=== PATIENT | female | born 1965 | race Caucasian/White ===

== ENCOUNTER 2017-05-12 20:35 | Emergency (ER) | payer OTHER ==
[2017-05-12 20:45] VITALS: BP 120/90; PULSE 78; TEMP 97.7; BMI 22.4
[2017-05-12] MEDS ORDERED: DOXYCYCLINE HYCLATE 100 MG CAPSULE PO ONE ×2 (20:57)
--- NOTE | 2017-05-12 20:57 | PDOC ---
History of Present Illness <Roby Raymundo - Last Filed: 05/12/17 20:57> - General History Source: Patient Exam Limitations: No Limitations - History of Present Illness Initial Comments: 05/12/17 21:07 The patient is a 52 year old female with a significant past medical history of hysterectomy, thyroid CA, who presents to the ED with a possible tick bite on the right thigh. Patient states she is having itching and a black alexa to the right thigh after going for a run [place]. Patient states she went to an urgent care earlier today and had a prescription sent over to her pharmacy for a possible tick bite. Patient states the urgent care provider could not find any ticks on her body. Patient states she went over to the pharmacy but they had not received the prescription from the urgent care center, and urgent care center was now closed. Patient comes in to the ER seeking a prescription for her unresolved tick bite. She states she was prescribed Doxycycline by the urgent care provider. <Agapito Li - Last Filed: 05/12/17 21:09> - General Chief Complaint: Bite Stated Complaint: TICK BITE OF RIGHT THIGH Time Seen by Provider: 05/12/17 20:48 Past History - Past Medical History Cancer: Yes (THYROID) Diabetes: No Thyroid Disease: Yes - Immunization History Td Vaccination: Yes Immunization Up to Date: No - Psycho/Social/Smoking Cessation Hx Anxiety: No Suicidal Ideation: No Smoking Status: No Smoking History: Never smoked Have you smoked in the past 12 months: No Number of Cigarettes Smoked Daily: 0 'Breaking Loose' booklet given: 01/07/13 Hx Alcohol Use: Yes (1 GLASS WINE/WEEK) Drug/Substance Use Hx: No Substance Use Type: None Hx Substance Use Treatment: No <Roby Raymundo - Last Filed: 05/12/17 20:57> <Agapito Li - Last Filed: 05/12/17 21:09> - Past Medical History Allergies/Adverse Reactions: Allergies Allergy/AdvReac Type Severity Reaction Status Date / Time No Known Allergies Allergy Verified 05/12/17 20:36 Home Medications: Ambulatory Orders Estrogens,Conjugated [Premarin -] 0.3 mg PO DAILY 05/12/17 Thyroid,Pork [Nature-Throid] 130 mg PO DAILY 05/12/17 Review of Systems - Review of Systems Able to Perform ROS?: Yes Comments:: 05/12/17 21:07 GENERAL/CONSTITUTIONAL: No fever or chills. No weakness. HEAD, EYES, EARS, NOSE AND THROAT: No change in vision. No ear pain or discharge. No sore throat. CARDIOVASCULAR: No chest pain or shortness of breath. RESPIRATORY: No cough, wheezing, or hemoptysis. GASTROINTESTINAL: No nausea, vomiting, diarrhea or constipation. GENITOURINARY: No dysuria, frequency, or change in urination. MUSCULOSKELETAL: No joint or muscle swelling or pain. No neck or back pain. SKIN: + black lesion on her right thigh. mild itching to the area. NEUROLOGIC: No headache, vertigo, loss of consciousness, or change in strength/ sensation. ENDOCRINE: No increased thirst. No abnormal weight change. HEMATOLOGIC/LYMPHATIC: No anemia, easy bleeding, or history of blood clots. ALLERGIC/IMMUNOLOGIC: No hives or skin allergy. <Agapito Li - Last Filed: 05/12/17 21:09> *Physical Exam - Vital Signs Last Vital Signs Temp Pulse Resp BP Pulse Ox 97.7 F 78 15 120/90 99 05/12/17 20:35 05/12/17 20:35 05/12/17 20:35 05/12/17 20:35 05/12/17 20:35 <Roby Raymundo - Last Filed: 05/12/17 20:57> - Vital Signs Last Vital Signs Temp Pulse Resp BP Pulse Ox 97.7 F 78 15 120/90 99 05/12/17 20:35 05/12/17 20:35 05/12/17 20:35 05/12/17 20:35 05/12/17 20:35 - Physical Exam Comments: 05/12/17 21:08 GENERAL: Awake, alert, and fully oriented, in no acute distress HEAD: No signs of trauma EYES: PERRLA, EOMI, sclera anicteric, conjunctiva clear ENT: Auricles normal inspection, hearing grossly normal, nares patent, oropharynx clear without exudates. Moist mucosa NECK: Normal ROM, supple, no lymphadenopathy, JVD, or masses LUNGS: Breath sounds equal, clear to auscultation bilaterally. No wheezes, and no crackles HEART: Regular rate and rhythm, normal S1 and S2, no murmurs, rubs or gallops ABDOMEN: Soft, nontender, normoactive bowel sounds. No guarding, no rebound. No masses EXTREMITIES: Normal range of motion, no edema. No clubbing or cyanosis. No cords, erythema, or tenderness NEUROLOGICAL: Cranial nerves II through XII grossly intact. Normal speech, normal gait SKIN: Lesion was on her right thigh but patient declined to take off her clothes to show. <Agapito Li - Last Filed: 05/12/17 21:09> ED Treatment Course - Medications Given in the ED: ED Medications Discontinued Medications Generic Name Dose Route Start Last Admin Trade Name Freq PRN Reason Stop Dose Admin Doxycycline Hyclate 200 mg 05/12/17 20:57 05/12/17 21:04 Vibramycin - PO 05/12/17 20:58 200 mg ONCE ONE Administration <Agapito Li - Last Filed: 05/12/17 21:09> *DC/Admit/Observation/Transfer - Discharge Dispostion Admit: No - Attestations Physician Attestion: 05/12/17 20:56 I, Dr. Roby Raymundo, attest that this document has been prepared under my direction and personally reviewed by me in its entirety. I further attest, that it accurately reflects all work, treatment, procedures and medical decision -making performed by me. <Roby Raymundo - Last Filed: 05/12/17 20:57> - Attestations Scribe Attestion: 05/12/17 21:09 Documentation prepared by Agapito Li, acting as biomedical engineering aide for Roby Raymundo MD. <Agapito Li - Last Filed: 05/12/17 21:09> Diagnosis at time of Disposition: Prophylactic antibiotic - Discharge Dispostion Disposition: HOME Condition at time of disposition: Improved - Patient Instructions Printed Discharge Instructions: DI for Lyme Disease Additional Instructions: Liz Hillman we could help..... return to us anytime you have a problem Best- Dr. Roby Raymundo
== END 2017-05-12 21:07 | disposition home or self-care (01) ==
LOC: FER 20:35
DX: S70.361A Insect bite (nonvenomous), right thigh, initial encounter (principal); W57.XXXA Bitten or stung by nonvenomous insect and other nonvenomous arthropods, initial encounter; Y93.02 Activity, running; Y92.828 Other wilderness area as the place of occurrence of the external cause; Z85.850 Personal history of malignant neoplasm of thyroid; Z90.710 Acquired absence of both cervix and uterus
CPT/HCPCS: 99281-25